=== PATIENT | male | born 1960 | race Caucasian/White ===

== ENCOUNTER → 2017-01-23 | Outpatient (CLI) | payer BC ==
[~2017-01-23] MED LIST: ALBUAER2 INH; ASCO250T5 PO; ATOR-22 PO; ATV/1 PO; BUPR100T8 PO; CHLO1TAB38 PO; CLON0.5T3 PO; CNT PO; CYCL10TA6 PO; DSY100 PO; IRON TAB PO; METH750T PO; PARO10TA3 PO; SULF500T36 PO; TRAM-10 PO
[2017-01-23 17:01] LABS: CHOLESTEROL/HDL RATIO 3.3
== END | disposition home or self-care (01) ==
LOC: C.LAB 13:48
PROVIDERS: ATTEND Neuromusculoskeletal Medicine & OMM
DX: Z00.00 Encounter for general adult medical examination without abnormal findings (principal); E66.9 Obesity, unspecified; E78.5 Hyperlipidemia, unspecified

== ENCOUNTER → 2017-08-10 | Outpatient (CLI) | payer OTHER | END | disposition home or self-care (01) | LOC: C.LAB 14:34 | PROVIDERS: ATTEND Neuromusculoskeletal Medicine & OMM | DX: Z11.59 Encounter for screening for other viral diseases (principal) ==

== ENCOUNTER 2024-06-21 08:53 | Inpatient (IN) ==
--- NOTE | 2024-06-03 14:16 | PAT Medication Instructions ---
Medication Instructions Date of Service June 03, 2024 Home Medications Medication Instructions Recorded atorvastatin 20 mg tablet 20 mg PO HS #90 tabs 02/21/24 sulfasalazine 500 mg tablet See Rx Instructions .Route 05/01/24 .COMPLEX #180 tabs naproxen 500 mg tablet 500 mg PO BID PRN pain #20 tabs 05/13/24 methylprednisolone 4 mg tablets in 4 mg PO DAILY #21 ea 05/24/24 a dose pack (Medrol (Leopoldo)) oxycodone 5 mg tablet 5 mg PO Q4H PRN pain #15 tabs 05/24/24 chlorpromazine 10 mg tablet 20 mg PO HS clonazepam 0.5 mg tablet 0.5 mg PO QPM trazodone 100 mg tablet 200 mg PO HS bupropion HCl 100 mg tablet,12 hr sustained-release 100 mg PO QAM bupropion HCl 150 mg tablet,12 hr sustained-release 150 mg PO QAM albuterol sulfate 90 mcg/actuation aerosol inhaler 1 - 2 inh inhalation QID PRN SOB sertraline 50 mg tablet 75 mg PO QAM atorvastatin 20 mg tablet 20 mg PO HS tadalafil 5 mg tablet 5 mg PO QAM sulfasalazine 500 mg tablet See Rx Instructions .Route .COMPLEX naproxen 500 mg tablet 500 mg PO BID PRN pain acetaminophen 500 mg tablet (Tylenol Extra Strength) 500 mg PO Q6H PRN Pain doxycycline hyclate 100 mg capsule 100 mg PO DAILY PRN Other emtricitabine 200 mg-tenofovir alafenamide fumarate 25 mg tablet (Descovy) 1 tab PO QAM [id number] 300 mcg-K 60 mcg-lycop 600 mcg-lutein 300 mcg tablet (Centrum Silver Men) 1 tab PO QAM phentermine 37.5 mg capsule 37.5 mg PO QAM psyllium husk 0.4 gram capsule (Metamucil) 1.2 g PO BID methylprednisolone 4 mg tablets in a dose pack (Medrol (Leopoldo)) 4 mg PO DAILY oxycodone 5 mg tablet 5 mg PO Q4H PRN pain gabapentin 300 mg capsule 300 mg PO TID prednisone 20 mg tablet 20 mg PO QAM ASK your surgeon for instructions naproxen 500 mg tablet 500 mg PO BID PRN pain ASK your prescriber and surgeon sulfasalazine 500 mg tablet See Rx Instructions .Route .COMPLEX emtricitabine 200 mg-tenofovir alafenamide fumarate 25 mg tablet (Descovy) 1 tab PO QAM STOP 5 days prior to surgery phentermine 37.5 mg capsule 37.5 mg PO QAM DO NOT take the morning of surgery [id number] 300 mcg-K 60 mcg-lycop 600 mcg-lutein 300 mcg tablet (Centrum Silver Men) 1 tab PO QAM psyllium husk 0.4 gram capsule (Metamucil) 1.2 g PO BID Take morning of surgery With a small sip of water, OTHERWISE NOTHING TO EAT OR DRINK AFTER MIDNIGHT: bupropion HCl 100 mg tablet,12 hr sustained-release 100 mg PO QAM bupropion HCl 150 mg tablet,12 hr sustained-release 150 mg PO QAM albuterol sulfate 90 mcg/actuation aerosol inhaler 1 - 2 inh inhalation QID PRN SOB (use if needed; please bring rescue inhaler with you to hospital day of surgery if possible) sertraline 50 mg tablet 75 mg PO QAM tadalafil 5 mg tablet 5 mg PO QAM acetaminophen 500 mg tablet (Tylenol Extra Strength) 500 mg PO Q6H PRN Pain (if needed) doxycycline hyclate 100 mg capsule 100 mg PO DAILY PRN Other (if needed) methylprednisolone 4 mg tablets in a dose pack (Medrol (Leopoldo)) 4 mg PO DAILY oxycodone 5 mg tablet 5 mg PO Q4H PRN pain (if needed) gabapentin 300 mg capsule 300 mg PO TID prednisone 20 mg tablet 20 mg PO QAM Take evening before surgery chlorpromazine 10 mg tablet 20 mg PO HS clonazepam 0.5 mg tablet 0.5 mg PO QPM trazodone 100 mg tablet 200 mg PO HS albuterol sulfate 90 mcg/actuation aerosol inhaler 1 - 2 inh inhalation QID PRN SOB (if needed) atorvastatin 20 mg tablet 20 mg PO HS acetaminophen 500 mg tablet (Tylenol Extra Strength) 500 mg PO Q6H PRN Pain (if needed) doxycycline hyclate 100 mg capsule 100 mg PO DAILY PRN Other (if needed) psyllium husk 0.4 gram capsule (Metamucil) 1.2 g PO BID oxycodone 5 mg tablet 5 mg PO Q4H PRN pain (if needed) gabapentin 300 mg capsule 300 mg PO TID Other Notes If you have any questions please call us at [phone] or [phone] or [phone] or [phone]
--- NOTE | 2024-06-05 14:41 | Anesthesiology Consultation ---
Date of Service June 05, 2024 Assessment & Plan (1) Encounter for pre-operative examination: Chart Review Chart Review: Acceptable Risk for Surgery (pending 06/11/24 PCP office visit ) and Patient seen in Pre Admission Testing - Discussed case with Dr. Valencia- due to limited functional status and type of surgical procedure- recommend PCP approval for upcoming surgery. Workload note sent to Dr. Roa - PCP would like preop appt set up - preop PCP appt 06/11/24 Per PAT appt on 06/05/24, no recent illness/disease exposures, illness related symptoms, or recent illness/disease positive tests. Will leave to surgeon's discretion if preop Covid testing needed Teaching & Discussion Pre-Anesthesia Teaching/Discussion Notes: Instructed NPO after midnight before surgery,except medications with 15 cc of water. Medication instructions provided according to the PAT guidelines. History Surgery Operation Date: 06/21/24 07:30 Proposed Procedures p Lateral Lumbar Interbody Fusion L2-L3, L3-L4, L2 Laminectomy for Facet Cyst, L2-L4 Posterior Instrumental Fusion, CT Navigation, with Spinal Cord Monitoring - Prasad Jordan MD Height/Weight Height: 5 ft 6 in Weight: 116 kg Allergies Allergy/AdvReac Type Severity Reaction Status Date / Time codeine AdvReac Unknown Constipatio Verified 06/03/24 11:47 n oxcarbazepine AdvReac Unknown VISION Verified 06/03/24 11:47 DISTURBANCES Medications Home Medications Medication Instructions Recorded Confirmed Last Taken chlorpromazine 10 mg tablet 20 mg PO HS 11/23/18 06/03/24 11/29/23 clonazepam 0.5 mg tablet 0.5 mg PO QPM 11/23/18 06/03/24 11/29/23 trazodone 100 mg tablet 200 mg PO HS 11/23/18 06/03/24 11/29/23 bupropion HCl 100 mg tablet,12 hr 100 mg PO QAM 10/07/20 06/03/24 11/29/23 sustained-release bupropion HCl 150 mg tablet,12 hr 150 mg PO QAM 10/07/20 06/03/24 11/29/23 sustained-release albuterol sulfate 90 mcg/actuation 1 - 2 inh inhalation QID PRN SOB 06/21/22 06/03/24 Unknown aerosol inhaler sertraline 50 mg tablet 75 mg PO QAM 07/14/22 06/03/24 11/29/23 atorvastatin 20 mg tablet 20 mg PO HS #90 tabs 02/21/24 06/03/24 Unknown tadalafil 5 mg tablet 5 mg PO QAM 02/21/24 06/03/24 Unknown sulfasalazine 500 mg tablet See Rx Instructions .Route 05/01/24 06/03/24 Unknown .COMPLEX #180 tabs naproxen 500 mg tablet 500 mg PO BID PRN pain #20 tabs 05/13/24 06/03/24 Unknown acetaminophen 500 mg tablet 500 mg PO Q6H PRN Pain 05/17/24 06/03/24 Unknown (Tylenol Extra Strength) doxycycline hyclate 100 mg capsule 100 mg PO DAILY PRN Other 05/17/24 06/03/24 Unknown emtricitabine 200 mg-tenofovir 1 tab PO QAM 05/17/24 06/03/24 Unknown alafenamide fumarate 25 mg tablet (Descovy) [id number] 300 mcg-K 60 1 tab PO QAM 05/17/24 06/03/24 Unknown mcg-lycop 600 mcg-lutein 300 mcg tablet (Centrum Silver Men) phentermine 37.5 mg capsule 37.5 mg PO QAM 05/17/24 06/03/24 Unknown psyllium husk 0.4 gram capsule 1.2 g PO BID 05/17/24 06/03/24 Unknown (Metamucil) methylprednisolone 4 mg tablets in 4 mg PO DAILY #21 ea 05/24/24 06/03/24 Unknown a dose pack (Medrol (Leopoldo)) oxycodone 5 mg tablet 5 mg PO Q4H PRN pain #15 tabs 05/24/24 06/03/24 Unknown gabapentin 300 mg capsule 300 mg PO TID 06/03/24 06/03/24 Unknown prednisone 20 mg tablet 20 mg PO QAM 06/03/24 06/03/24 Unknown Past Medical History Medical History Anxiety COPD (chronic obstructive pulmonary disease) mild, uses inhaler prn w/ exertion breathing stable Crohn disease Depression Fall in shower - 04/2024 > seen at [place] [facility] > Xrays foot/shoulder/ankle > given walking boot for ankle, no longer wearing - no fractures- ankle and foot pain improved, continues with right shoulder pain History of anemia History of COVID-19 (2019 > no hosp; resolved History of kidney stones passed on own Hx of gout No recent gout flares Hx of migraines Insomnia OCD (obsessive compulsive disorder) controlled, no longer on meds Scoliosis Seasonal allergies Exercise / Class Metabolic Activity III < 4 Walking/Shop/Light housework (no chest pain, mild SOB with flat surface ambulation (functional status poor due to increased back pain)- uses walker at home ) Past Family History Family History Mother Crohn's disease Chronic kidney disease Sister Asthma Father Hyperlipidemia Prostate cancer Denies family history of Colon cancer Ovarian cancer Myocardial infarction Breast cancer Past Surgical History Surgical History History of back surgery Lumbar Laminectomy History of colonoscopy History of tonsillectomy Hx of eye surgery right > tear duct sx Past Anesthesia History No Hx of Anesthesia Complications (with exception to "soreness" after tear duct surgery (had to keep getting medication per patient) ) and No Family Hx of Anesthesia Complications History of PONV No Hx of PONV and No Hx of Motion Sickness Social History Smoking Status: Former smoker Do You Dip or Chew Tobacco: No Smoking End Date: Quit around 2014 Hx Alcohol Use: No Hx Substance Use: No substance use type: does not use Review of Systems - Occ wheezing (chronic and intermittent due to COPD) - stable - Hx of snoring - no hx of sleep study - Ongoing right shoulder pain (surgeon aware per patient)- did encourage patient to follow up with surgeon to ensure shoulder pain will not affect rehab process for back surgery Patient denies chest pain, shortness of breath at rest, reflux, cough, palpitations. No hx of seizures, stroke, MT. No hx of blood clots or blood transfusions Physical Exam Vital Signs VITALS BP 133/77 P 96 TEMP 98.6 SP02 96% RESP 16 Constitutional no acute distress ENMT Mouth: no TMJ clicking Thyromental Distance: > or= 3.5 Finger Breadths (3.5) Mallampati Class: III Mouth / Teeth: 2 1. Broken capped tooth Missing molars and side teeth Neck + limited neck extension (minimal ) and + facial hair (advised to shave/trim ) Respiratory normal respiratory effort; no respiratory distress Auscultation: lungs clear to auscultation bilaterally; no wheezes Cardiovascular Rate/Rhythm: regular rate and regular rhythm Heart Sounds: no murmur Vessels: no carotid bruit Musculoskeletal Spine: no pain with cervical ROM Extremities: extremities normal to inspection Psychiatric Orientation: alert Lab Results Anesthesia Preop Results Results Anesthesia Widget: 2 WBC 10.39 K/ul (4.8-10.8) 06/05/24 Hgb 12.7 g/dl (14.0-18.0) L 06/05/24 Hct 39.4 % (42.0-52.0) L 06/05/24 Plt 231 K/uL (130-400) 06/05/24 Na 141 mmol/L (136-145) 06/05/24 K 4.2 mmol/L (3.5-5.1) 06/05/24 Cl 104 mmol/L (98-107) 06/05/24 CO2 34 mmol/L (21-32) H 06/05/24 BUN 15 mg/dl (6-23) 06/05/24 Creat 0.85 mg/dl (0.6-1.4) 06/05/24 Glucose Level 102 mg/dl (70-99(Fasting)) H 06/05/24 PT 10.3 Seconds (9.0-12.0) 06/05/24 PTT 26 Seconds (21-31) 06/05/24 INR 0.9 (0.9-1.1) 06/05/24 TSH 1.543 uIu/ml (0.300-4.500) 04/24/24 HA1c 4.8 % (4.5-5.6) 06/05/24 Blood Type A Positive 06/05/24 Antibody Screen NEGATIVE 06/05/24 Testing Electrocardiogram Date: 06/05/24 Findings: + NSR @ (86bpm) Left axis deviation Chest X-Ray Date: 06/05/24 Findings: + NAD
[~2024-06-21 08:53] MED LIST changes: -ALBUAER2 INH; -ASCO250T5 PO; -ATOR-22 PO; -ATV/1 PO; -BUPR100T8 PO; -CHLO1TAB38 PO; -CLON0.5T3 PO; -CNT PO; -CYCL10TA6 PO; +DEXAMETHASONE SOD INJ 4 MG/ML VIAL ONE; -DSY100 PO; -IRON TAB PO; +LIDOCAINE 2% 2 ML VIAL/AMP(20MG/ML) INFIL ONE; -METH750T PO; +ONDANSETRON INJ 2 MG/ML 2 ML VIAL ONE; -PARO10TA3 PO; +PHENYLEPHRINE HCL 10 MG/ML VIAL ONE; +PROPOFOL IV EMULSION 10 MG/ML 20 ML VIAL IV ONE; +ROCURONIUM BROMIDE 10 MG/ML 5 ML VIAL IV ONE; -SULF500T36 PO; -TRAM-10 PO
[2024-06-21] MEDS ORDERED: ATROPINE SULFATE 0.1 MG/ML 10ML SYR IV PRN (09:21)
[2024-06-21] MEDS ORDERED: PROMETHAZINE HCL 6.25 MG in SODIUM CHLORIDE 0.9% 50 ML IV PRN (09:21)
[2024-06-21] MEDS ORDERED: DROPERIDOL 5 MG/2 ML VIAL IV PRN (09:21)
[2024-06-21] MEDS ORDERED: ePHEDrine sulfate 50 MG/ML AMP IV PRN (09:21)
[2024-06-21] MEDS: ACETAMINOPHEN 500 MG TAB PO SCH (09:37)
[2024-06-21] MEDS: LR 60ML/HR IV SCH (09:37)
[2024-06-21] MEDS: ALBUT/IPRATROP 3MG/0.5MG NEB 3 ML VIAL INH STA (09:43)
[2024-06-21] MEDS: LR 15ML/HR IV SCH (10:00)
[2024-06-21] MEDS ORDERED: fentaNYL citrate PF 100 MCG/2 ML VIAL ONE ×2 (10:10→15:56)
[2024-06-21] MEDS ORDERED: MIDAZOLAM HCL 1 MG/ML 2ML VIAL ONE (10:10)
--- NOTE | 2024-06-21 10:36 | History & Physical Bridge Note ---
Date of Service June 21, 2024 History & Physical Bridge Note I have examined the patient, reviewed the History & Physical and in the interval since the performance of the History & Physical I have noted the following changes of clinical significance: no changes noted Plan for L2-3, L3-4 lateral fusion, posterior instrumented fusion L2-4, L2 laminectomy
[2024-06-21] MEDS ORDERED: PROPOFOL IV EMULSION 10 MG/ML 100 ML VIAL IV ONE ×3 (11:08→16:19)
[2024-06-21] MEDS ORDERED: REMIFENTANIL HCL 1 MG VIAL IV ONE ×3 (11:08→14:09)
[2024-06-21] MEDS: ceFAZolin 3000MG 3,000 MG/72.5 ML BAG IV SCH ×2 (11:44→23:32)
[2024-06-21] MEDS ORDERED: ROCURONIUM BROMIDE 10 MG/ML 5 ML VIAL IV ONE (14:04)
--- NOTE | 2024-06-21 14:22 | Fluoroscopy Report ---
FL lumbar spine 2-3V CLINICAL HISTORY: L2-L4 LATERAL INTERBODY L2 LAMI L2-L4 FUSION COMPARISON STUDY: None FLUOROSCOPY TIME: 260 seconds FLUOROSCOPY IMAGES: 3 EXPOSURE DOSE: 238 mGy FINDINGS: Fluoroscopy was provided for lumbar surgery. IMPRESSION: Intraoperative fluoroscopy. ACT 112: Negative or not required by law. Electronically signed by: Bernardo Azar M.D. 06/21/2024 2:21 PM
[2024-06-21] MEDS ORDERED: ceFAZolin 330 MG/ML 1 GM VIAL ONE (15:02)
[2024-06-21] MEDS: ceFAZolin 3000MG 3,000 MG/72.5 ML BAG IV ONE (15:15)
[2024-06-21] MEDS ORDERED: HYDROmorphone INJ 2 MG/ML SYR/VIAL ONE (15:28)
[2024-06-21] MEDS ORDERED: DexMEDEtomidine HCL IV 100 MCG/ML VIAL IV ONE (16:35)
[2024-06-21] MEDS ORDERED: SUGAMMADEX SODIUM 200 MG/2 ML VIAL IV ONE (16:45)
[2024-06-21] MEDS ORDERED: hydrALAZINE HCL 20 MG/ML VIAL ONE (16:51)
[2024-06-21] MEDS: FLOSEAL HEMOSTATIC MATRIX 10ML TOP ONE (17:00)
[2024-06-21] MEDS: VANCOMYCIN HCL 1000MG/20ML VIAL ONE ×2 (17:00)
[2024-06-21] MEDS: BUPIVACAINE 0.5 % 5 MG/1 ML MPF 30ML VIAL ONE (17:00)
[2024-06-21] MEDS ORDERED: DO NOT ADMINISTER PNEUMOCOCCAL VACCINE PRN (17:18)
[2024-06-21] MEDS ORDERED: METOCLOPRAMIDE HCL INJ 5 MG/ML 2 ML VIAL IV PRN (17:18)
[2024-06-21] MEDS ORDERED: PROMETHAZINE 12.5 MG/50.5 ML BAG IV PRN (17:18)
[2024-06-21] MEDS ORDERED: ONDANSETRON INJ 2 MG/ML 2 ML VIAL IV PRN (17:18)
[2024-06-21] MEDS ORDERED: NALOXONE HCL 0.4 MG/1 ML VIAL/CARP IV PRN (17:18)
[2024-06-21] MEDS ORDERED: bisacodyL 10 MG SUPP PR PRN (17:18)
[2024-06-21] MEDS ORDERED: ACETAMINOPHEN 1,000 MG/100 ML VIAL IV PRN (17:18)
[2024-06-21] MEDS ORDERED: DO NOT ADMINISTER FLU VACCINE PRN (17:18)
[2024-06-21] MEDS ORDERED: FAMOTIDINE 20 MG TAB PO PRN (17:18)
[2024-06-21] MEDS ORDERED: diphenhydrAMINE Capsule 25 MG CAP PO PRN (17:18)
[2024-06-21] MEDS ORDERED: ALUMINUM/MAGNESIUM SUSP 30 ML UDC PO PRN (17:18)
[2024-06-21] MEDS ORDERED: SOD PHOSPHATE/SOD BIPHOSPHATE ENEMA 132 ML BTL PR PRN (17:18)
[2024-06-21] MEDS ORDERED: ALBUTEROL HFA 8 GM INHALER INH PRN (17:33)
--- NOTE | 2024-06-21 18:04 | Operative Report ---
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 L3-4 anterior lumbar interbody fusion via lateral approach (59300). 2. L2-3 anterior lumbar interbody fusion via lateral approach (84798). 3. L3-4 interbody spacer placement with arthrodesis (13759). 4. L2-3 interbody spacer placement with arthrodesis (75524). 5. L2-3 posterolateral fusion (68699). 6. L3-4 posterolateral fusion (23328). 7. L2, L3, L4 posterior instrumentation (74306). 8. L2-3 laminectomy with removal of facet cyst (34015). 9. Stereotactic computer-assisted (navigational) procedure; spinal (78913). 10. Autograft and allograft for spine surgery (16319) Instrumentation: Medtronic Anteralign, Perc Screws Surgeon Prasad Jordan MD Outbound [employer] Executive Jorge WHITAKER_Heriberto Estimated Blood Loss 200 Findings Consistent with Post-Op Diagnosis Specimens None Drains MATHEW Drain Anesthesia Type General Complications none Disposition Disposition: Recovery Room Description of Procedure Informed consent was obtained. In the preoperative holding area, the patient was marked with a marking pen. They were taken to the operating room and anesthesia was initiated. Neuromonitoring was utilized, including running electromyography and triggered electromyography. They patient was placed in a lateral position. All bony prominences were carefully padded. Antibiotics were administered. A timeout was performed. Under the guidance of fluoroscopy, a lateral approach was utilized. An incision was made directly lateral over the L2-3 disk space. Blunt dissection was completed into the retroperitoneal space. The psoas was bluntly cleared off. A dilator was placed under fluoroscopy at the junction of the posterior and middle third of the disk space. The dilator was carefully dissected through the psoas to dock on the disc space. Neuromonitoring revealed that there were no nerves adjacent to the dilator. A guidewire was placed into the disk space. Progressively larger dilators were inserted. Neuromonitoring was utilized with each dilator to ensure that no nerves were adjacent to the approach. An appropriately sized retractor was placed over the dilators. It was secured to the bed using a clamp. Neuromonitoring revealed no nerves adjacent to the retractor. It was gently opened a small amount. A ball tip probe attached to neuromonitoring was used to further confirm that there were no nerves in the visualized field or directly behind the retractor. Having cleared the field of nerves, an annulotomy was completed using a knife. A diskectomy was completed using curettes, rongeurs and pituitaries. The endplates were prepared. An appropriately sized interbody spacer was selected and implanted after being pack ed with allograft material. The retractor was carefully removed and meticulous hemostasis was achieved. Attention was then turned to the L3-4 disk space. The psoas was bluntly cleared off. A dilator was placed under fluoroscopy at the junction of the posterior and middle third of the disk space. The dilator was carefully dissected through the psoas to dock on the disc space. Neuromonitoring revealed that there were no nerves adjacent to the dilator. A guidewire was placed into the disk space. Progressively larger dilators were inserted. Neuromonitoring was utilized with each dilator to ensure that no nerves were adjacent to the approach. An appropriately sized retractor was placed over the dilators. It was secured to the bed using a clamp. Neuromonitoring revealed no nerves adjacent to the retractor. It was gently opened a small amount. A ball tip probe attached to neuromonitoring was used to further confirm that there were no nerves in the visualized field. Having cleared the field of nerves, an annulotomy was completed using a knife. A diskectomy was completed using curettes, rongeurs and pituitaries. The endplates were prepared. An appropriately sized interbody spacer was selected and implanted after being packed with allograft material. The retractor was carefully removed and meticulous hemostasis was achieved. The fascia was closed using absorbable suture. The subcutaneous was closed using absorbable suture. Tissue sealant was used to close the skin. A sterile dressing was placed. The patient was then placed prone on a Vin table for the posterior procedure. Their back was prepped and draped in typical sterile fashion. A timeout was performed again. A stereotactic frame was attached to the patient. Intraoperative O-arm CT (computed tomography) images were obtained for stereotactic navigation. A #10 blade was used to incise the skin. Bovie electrocautery was used to elevate the paraspinal musculature off the laminae. Using a Kerrison rongeur, laminectomy of L2 was completed. Ligamentum flavum between L4-5 was removed. There was noted to be facet hypertrophy and a cyst arrising from the right L2-3 Facet joint tightly adherent to the dura. This was causing significant lateral recess stenosis. Therefore, a medial facetectomy was completed. The cyst was elevated off the dura with a nerve hook and Roberto elevator and transected at the facet joint origin. A partial superior laminectomy of L3 was performed. The L3 traversing nerve roots were confirmed to be completely decompressed. Using stereotactic assistance, pedicle screw tracts were created using an awl. The L2-3 and L3-4 facet joints were decorticated. Local autograft was packed posterolaterally to induce fusion. Next, utilizing stereotactic assistance, screws of appropriate length were placed into the pedicles of L2, L3, L4. Electromyography confirmed appropriate position. Rods were placed bilaterally. Set screws were placed and final tightened. A second intraoperative CT scan was then obtained to verify appropriate position of the hardware. Drain placed over the laminectomy exiting through the skin. The fascia, subcutaneous and cutaneous were closed in layers using suture. A sterile dressings was placed. At the end of case, all instrument and sponge counts were correct. The patient was taken to the PACU in stable condition intubated. I attest to the content of the Intraoperative Record and any orders documented therein. Any exceptions are noted below.
[2024-06-21] MEDS: HYDROmorphone INJ 2 MG/ML SYR/VIAL IV PRN (19:23)
--- NOTE | 2024-06-21 19:27 | Anesthesiology Progress Note ---
Date of Service June 21, 2024 Anesthesia Post Procedure Vital Signs Vital Signs: Temp Pulse Pulse Resp BP BP Pulse Ox 06/21/24 19:20 79 19 151/98 H 98 06/21/24 19:10 81 12 145/90 H 97 06/21/24 19:00 77 14 165/79 H 96 06/21/24 18:50 78 12 185/91 H 96 06/21/24 18:40 77 15 159/71 H 95 06/21/24 18:30 36.4 C L 77 13 172/86 H 99 06/21/24 18:20 78 14 176/90 H 98 06/21/24 18:10 82 12 168/97 H 98 06/21/24 18:00 78 10 L 171/84 H 100 06/21/24 17:50 77 8 L 174/85 H 100 06/21/24 17:42 36.2 C L 75 9 L 161/92 H 100 06/21/24 09:43 77 20 96 06/21/24 09:19 36.7 C 74 20 147/85 H 96 O2 Del Method O2 Flow Rate 06/21/24 19:20 Room Air 06/21/24 19:10 Room Air 06/21/24 19:00 Room Air 06/21/24 18:50 Room Air 06/21/24 18:40 Room Air 06/21/24 18:30 Oxymask 5 06/21/24 18:20 Oxymask 5 06/21/24 18:10 Oxymask 5 06/21/24 18:00 T-Piece 12 06/21/24 17:50 T-Piece 12 06/21/24 17:42 T-Piece 12 06/21/24 09:43 Room Air 06/21/24 09:19 Room Air Pain Intensity Bilateral Back: Pain Intensity: 6 Transfer of Care Handoff Completed per policy Notes Mental Status: alert / awake / arousable Patient Amnestic to Procedure: Yes Nausea / Vomiting: adequately controlled Pain: adequately controlled Airway Patency, RR, SpO2: stable & adequate BP & HR: stable & adequate Hydration State: stable & adequate Anesthetic Complications: no major complications apparent
[2024-06-21] MEDS: HYDROmorphone INJ 2 MG/ML SYR/VIAL ONE (20:16)
[2024-06-21] MEDS: LORazepam 2 MG/1 ML VIAL IV PRN (20:25)
[2024-06-21] MEDS: LACTATED RINGER'S 1,000 ML IV SCH (20:25)
[2024-06-21] MEDS: oxyCODONE HCL IR 5 MG TAB (IMMEDIATE RELEASE) PO PRN (20:25)
[2024-06-21] MEDS: DOCUSATE SODIUM/SENNA 50/8.6MG TAB PO SCH (21:08)
[2024-06-21] MEDS: traZODone HCL 100 MG TAB PO SCH (21:08)
[2024-06-21] MEDS: clonazePAM 0.5 MG TAB PO SCH (21:08)
[2024-06-21] MEDS: ATORVASTATIN 20 MG TAB PO SCH (21:08)
[2024-06-21] MEDS: chlorproMAZINE HCL 10 MG TAB PO SCH (21:08)
[2024-06-21] MEDS: GABAPENTIN 300 MG CAP PO SCH (21:08)
[2024-06-22] MEDS: hydrOXYzine HCl 25 MG TAB PO PRN (00:32)
[2024-06-22] MEDS: HYDROmorphone INJ 0.5 MG/0.5 ML SYR IV PRN (01:38)
[2024-06-22] MEDS: tiZANidine HCL 4 MG TABLET PO PRN (01:52)
[2024-06-22] MEDS: LORazepam 0.5 MG TAB PO PRN (05:27)
[2024-06-22] MEDS: POLYETHYLENE (MIRALAX) 17 GM PACK PO SCH (05:27)
[2024-06-22 07:33] LABS: Basophils # (auto) 0.03 K/uL (0.00-0.20); Basophils % (auto) 0.2 %; Eosinophils # (auto) 0.01 K/uL (0.00-0.50); Eosinophils % (auto) 0.1 %; Hematocrit (blood only) 35.5 % (42.0-52.0); Hemoglobin 11.8 g/dl (14.0-18.0); Immature Granulocytes % (auto) 0.5 %; Lymphocytes # (auto) 1.76 K/uL (1.20-3.40); Lymphocytes % (auto) 9.6 %; Mean Corpuscular Hemoglobin 30.4 pg (25.0-34.0); Mean Corpuscular Hgb Conc 33.2 g/dL (32.0-36.0); Mean Corpuscular Volume 91.5 fL (80.0-100.0); Mean Platelet Volume 10.8 fL (9.4-12.4); Monocytes # (auto) 1.55 K/uL (0.11-0.59); Monocytes % (auto) 8.5 %; Neutrophils # (auto) 14.87 K/uL (1.40-6.50); Neutrophils % (auto) 81.1 %; Platelet Count 296 K/uL (130-400); RDW Coefficient of Variation 15.9 % (11.5-14.5); RDW Standard Deviation 53.1 fL (36.4-46.3); Red Blood Count 3.88 M/uL (4.70-6.10); White Blood Count 18.32 K/ul (4.8-10.8)
[2024-06-22 07:43] LABS: BUN Creatinine Ratio 17.9 (10-20); Calcium 8.2 mg/dl (8.6-10.3); Creatinine Clr Calc Pharmacy 111.2 ml/min; Potassium 4.2 mmol/L (3.5-5.1)
[2024-06-22] MEDS: buPROPion SR 150 MG TABCR PO SCH (08:00)
[2024-06-22] MEDS: SERTRALINE HCL 50 MG TABLET PO SCH (08:00)
[2024-06-22] MEDS: buPROPion SR 100 MG TABCR PO SCH (08:01)
[2024-06-22] MEDS: ACETAMINOPHEN 500 MG TAB PO PRN (08:06)
--- NOTE | 2024-06-22 08:45 | Orthopedic Progress Note ---
Date of Service June 22, 2024 Assessment & Plan (1) S/P lumbar fusion: mobilize with PT diet as tolerated PAin control oxy, tylenol, tizanidine prn. Add toradol 3 doses SCDs and ambulate for DVT prophylaxis cruz out when mobilizing labs reviewed Subjective s/p xlif, neuro intact, reports pain at incision sites as expected, awake and eating breakfast this AM. Difficult pain control overnight Review of Systems All systems reviewed & are unremarkable except as noted in HPI & below. Physical Exam no neuro deficits L2-S1 myotomes, dermatomes drain functioning SCDs in place Results & Data Results & Data Laboratory Results . Diagnostic Findings . PG Care Time/CCT Total # of Minutes Spent Total Time Spent with Patient: Total time spent is greater than 50% in coordination of care (as documented) at patient's floor/unit and/or counseling patient: Coding Level of Care Code 23195 Post Operative Follow-Up Diagnoses S/P lumbar fusion Z98.1
[2024-06-22] MEDS: KETOROLAC 30 MG/ML VIAL IV SCH (09:02)
--- NOTE | 2024-06-22 10:28 | Hospitalist Consultation ---
Date of Consultation June 22, 2024 Assessment & Plan (1) Crohns disease: (2) Chronic obstructive pulmonary disease: (3) Hyperlipidemia: Plan 64 y/o M w/ PMHx of MDD, obesity, LBP 2o L spine DDD and stenosis s/p lumbar laminectomy, COPD, Crohn's dz, and HLD who presents to the hospital for elective back surgery with Dr. Jordan. Hospitalist were consulted for medical management. #COPD Not on daily maintenance inhalers, continue prn albuterol Does not use CPAP or supplemental oxygen. Wean oxygen as able, goal O2 greater than 90% #Crohn dz - sulfasalazine resumed #Sexual exposure risk - has not been receiving his Descovy here (due to non formulary), should take for 7 days before protected against HIV #HLD - continue statin #Mental health - continue Wellbutrin, chlorpromazine, clonazepam, zoloft Caution for oversedation with concomitant pain medications #S/p Back surgery discharge dispo / pain control / dvt proh per primary EBL 200, post op Hgb 11.8 (prior 12.7). Elevated WBC - likely reactive to surgery and result of steroid use. No signs of acute infection Thank you for allowing us to participate in the care of this patient, hospital medicine will sign off. Please reach out with any new questions or concerns. Supervising Physician Co-Signing Physician Notes Attending Attestation: Chart reviewed in detail, consult care plan d/w JULIANNE Lange. I agree w/ the owen components of her consult documentation. 64yo male with history of MDD, OCD, COPD, obesity, previous back surgery, Crohn's disease on sulfasalazine - follows with [facility]. Presented 06/21/24 for elective spine surgery with Dr Jordan. During surgery the following were completed per the op note -- 1. L3-4 anterior lumbar interbody fusion via lateral approach (02417). 2. L2-3 anterior lumbar interbody fusion via lateral approach (68107). 3. L3-4 interbody spacer placement with arthrodesis (58350). 4. L2-3 interbody spacer placement with arthrodesis (63125). 5. L2-3 posterolateral fusion (). 6. L3-4 posterolateral fusion (). 7. L2, L3, L4 posterior instrumentation (52477). 8. L2-3 laminectomy with removal of facet cyst (16579). 9. Stereotactic computer-assisted (navigational) procedure; spinal (01015). 10. Autograft and allograft for spine surgery (58501) Post-op H/H show minimal-mild decrease only. Post-op Creatinine 0.8. Vitals are stable. Defer pain management, discharge disposition, etc. to primary ortho team. Chronic medical problems are stable at this time. Darwin Allred MD History of Present Illness Reason for Consultation: medical management Requesting Physician: Jorge Mercer PA-C Attending Physician: Prasad Jordan MD History of Present Illness 64 y/o M w/ PMHx of MDD, obesity, LBP 2o L spine DDD and stenosis s/p lumbar laminectomy, COPD, Crohn's dz, and HLD who presents to the hospital for elective back surgery with Dr. Jordan. Hospitalist were consulted for medical management. Seen on postop day 1, visitors present at bedside. Reports feeling tired the pain control is better than last night. Was able to walk however in the hallway with therapy. Has been passing gas since surgery. Does feel like his medications that he is receiving here is reflective of this her medications Allergies Allergy/AdvReac Type Severity Reaction Status Date / Time codeine AdvReac Unknown Constipatio Verified 06/21/24 09:27 n oxcarbazepine AdvReac Unknown VISION Verified 06/21/24 09:27 DISTURBANCES Home Medications Medication Instructions Recorded Confirmed Type chlorpromazine 10 mg tablet 20 mg PO HS 11/23/18 06/21/24 History clonazepam 0.5 mg tablet 0.5 mg PO QPM 11/23/18 06/21/24 History trazodone 100 mg tablet 200 mg PO HS 11/23/18 06/21/24 History bupropion HCl 100 mg tablet,12 hr 100 mg PO QAM 10/07/20 06/21/24 History sustained-release bupropion HCl 150 mg tablet,12 hr 150 mg PO QAM 10/07/20 06/21/24 History sustained-release albuterol sulfate 90 mcg/actuation 1 - 2 inh inhalation QID PRN SOB 06/21/22 06/21/24 History aerosol inhaler sertraline 50 mg tablet 75 mg PO QAM 07/14/22 06/21/24 History atorvastatin 20 mg tablet 20 mg PO HS #90 tabs 02/21/24 06/21/24 Rx tadalafil 5 mg tablet 5 mg PO QAM 02/21/24 06/21/24 History sulfasalazine 500 mg tablet See Rx Instructions .Route 05/01/24 06/21/24 Rx .COMPLEX #180 tabs acetaminophen 500 mg tablet 500 mg PO Q6H PRN Pain 05/17/24 06/21/24 History (Tylenol Extra Strength) doxycycline hyclate 100 mg capsule 100 mg PO DAILY PRN Other 05/17/24 06/21/24 History emtricitabine 200 mg-tenofovir 1 tab PO QAM 05/17/24 06/21/24 History alafenamide fumarate 25 mg tablet (Descovy) fdpelrnv-ep-chkoy 300 mcg-K 60 1 tab PO QAM 05/17/24 06/21/24 History mcg-lycop 600 mcg-lutein 300 mcg tablet (Centrum Silver Men) phentermine 37.5 mg capsule 37.5 mg PO QAM 05/17/24 06/21/24 History psyllium husk 0.4 gram capsule 1.2 g PO BID 05/17/24 06/21/24 History (Metamucil) oxycodone 5 mg tablet 5 mg PO Q4H PRN pain #15 tabs 05/24/24 06/21/24 Rx gabapentin 300 mg capsule 300 mg PO TID 06/03/24 06/21/24 History prednisone 20 mg tablet 20 mg PO QAM 06/03/24 06/21/24 History Patient History Medical History Anxiety COPD (chronic obstructive pulmonary disease) mild, uses inhaler prn w/ exertion breathing stable Crohn disease Depression Fall in shower - 04/2024 > seen at [place] [facility] > Xrays foot/shoulder/ankle > given walking boot for ankle, no longer wearing - no fractures- ankle and foot pain improved, continues with right shoulder pain History of anemia History of COVID-19 (2019 > no hosp; resolved History of kidney stones passed on own Hx of gout No recent gout flares Hx of migraines Insomnia OCD (obsessive compulsive disorder) controlled, no longer on meds Scoliosis Seasonal allergies Surgical History History of back surgery Lumbar Laminectomy History of colonoscopy History of tonsillectomy Hx of eye surgery right > tear duct sx Family History Mother Crohn's disease Chronic kidney disease Sister Asthma Father Hyperlipidemia Prostate cancer Denies family history of Colon cancer Ovarian cancer Myocardial infarction Breast cancer Social History Smoking Status: Former smoker Tobacco Type: Cigarettes Age Started Using Tobacco: 20; Age Quit Using Tobacco: 50; packs per day: 1; Smoking End Date: Quit around 2014; Second Hand Exposure: No; Do You Dip or Chew Tobacco: No; Tobacco Cessation Education Requested by Patient: No Hx Alcohol Use: No Hx Substance Use: No Preferred Language: Lithuanian Communication Ability: Effective Visual Impairment: No Limitations Hearing Ability: Normal Microbiology Analyst Required: No Beliefs That Will Affect Care: None marital status: Single Current Living Situation: Alone Current Living Situation Comment: sister current occupational status: employed current occupation: [employer] Sub[employer]er How many Children do You have: 0 Other Information That Helps Us Care for You: No Feels Safe at Home: Yes Safety Concerns: Feels Safe At This Time Childhood Exposure to Second-Hand Smoke: No Diet: regular caffeine: Yes during the past year weight has: increased > 10 lbs Dental Care, Regularly: Yes Physical Activity Frequency: Does not Exercise Seatbelt Use: always Sunscreen Use: No Assistive Devices: Glasses and Walker Review of Systems Review of Systems: All systems reviewed & are unremarkable except as noted in Subjective Results & Data Results & Data Vital Signs (Past 12 Hours) Vital Signs Temp Pulse Resp BP BP Pulse Ox O2 Del Method 06/22/24 08:12 99.0 F 89 18 124/71 96 Nasal Cannula 06/22/24 04:06 98.1 F 85 18 133/73 96 Nasal Cannula 06/21/24 23:22 98.1 F 94 H 18 147/75 H 93 Nasal Cannula O2 Flow Rate 06/22/24 08:12 06/22/24 04:06 2 06/21/24 23:22 2 Laboratory Results cbc and chemistry reviewed PG Care Time/CCT Total # of Minutes Spent Total Time Spent with Patient: Total time spent is greater than 50% in coordination of care (as documented) at patient's floor/unit and/or counseling patient: Coding Level of Care Code 76645 IN/OBS CONSULT LVL 4,60M Diagnoses Crohns disease K50.90 Chronic obstructive pulmonary disease J44.9 Hyperlipidemia E78.5
--- NOTE | 2024-06-22 16:49 | XRay Report ---
EXAM: XR lumbar spine 2-3V CLINICAL HISTORY: S/p lumbar fusion, weight bearing. TECHNIQUE: X-ray images of the lumbar spine were obtained in anteroposterior (AP) and lateral projections (weight-bearing). COMPARISON: CR 05/13/2024 and MR 05/24/2024. FINDINGS: Alignment: Evidence of L2 till L4 internal fixation hardware. Intact hardware and no malalignment. L2-3 and L3-4 disc spacers. Postoperative changes within the lower lumbar spine. Lumbar spine alignment is normal. Sacroiliac joints appear normal. Vertebral Bodies: Lumbar spine spondylo-degenerative changes with osteophytosis and facet joint arthropathy. Decreased heights of L1 and T12 vertebrae noted, presenting anterior wedging deformity Intervertebral Disc Spaces: Mildly narrowed L4-5 and L5-S1 intervertebral disc spaces. Soft Tissues: Paraspinal soft tissues are of normal thickness. No evidence of paraspinal soft tissue swelling or mass effect. Additional Findings: No other significant abnormalities noted. IMPRESSION: 1. Evidence of L2 till L4 internal fixation hardware. Intact hardware and no malalignment. 2. L2-3 and L3-4 disc spacers. 3. Postoperative changes within the lower lumbar spine. 4. Lumbar spine spondylo-degenerative changes with osteophytosis and facet joint arthropathy. 5. Decreased heights of L1 and T12 vertebrae were noted, presenting anterior wedging deformity. 6. Mildly narrowed L4-5 and L5-S1 intervertebral disc spaces. 7. Compared to prior studies. Internal fixation hardware added. Now no malalignment. No other changes. Disclaimer: A subtle bone abnormality or fracture may not be readily apparent on X-rays, thus clinical correlation and further imaging including follow-up CT, MRI, or follow-up X-rays are advised as needed. Electronically signed by Arnol Hernandez 06-22-2024 4:48 PM
[2024-06-22] MEDS: sulfaSALAzine 500 MG TABLET PO SCH (21:23)
[2024-06-23] MEDS: ONDANSETRON 4 MG OD TAB PO PRN (08:57)
--- NOTE | 2024-06-23 10:16 | Orthopedic Progress Note ---
Date of Service June 23, 2024 Assessment & Plan (1) S/P lumbar fusion: s/p XLIF, radicular pain resolved dc drain dressing changes daily pain control - oxy, tylenol prn tizanidine SCDs and ambulation for dvt work on placement, likely rehab given slow progress mobilizing Subjective Reports some right psoas pain, mobilizing with PT but slow progress. Voiding, tolerating PO diet. Review of Systems All systems reviewed & are unremarkable except as noted in HPI & below. Physical Exam neuro intact L2-S1 myotomes and dermatomes Voiding Drain minimal output Results & Data Results & Data Laboratory Results . Diagnostic Findings . PG Care Time/CCT Total # of Minutes Spent Total Time Spent with Patient: Total time spent is greater than 50% in coordination of care (as documented) at patient's floor/unit and/or counseling patient: Coding Level of Care Code 11997 Post Operative Follow-Up Diagnoses S/P lumbar fusion Z98.1
[2024-06-23] MEDS: MAGNESIUM HYDROXIDE SUSP 30 ML UDC PO PRN (17:08)
--- NOTE | 2024-06-24 08:12 | Orthopedic Progress Note ---
Date of Service June 24, 2024 Assessment & Plan (1) S/P lumbar fusion: POD 3 from XLIF, by Dr. Jordan -dressing changes daily -pain control - oxy, tylenol prn tizanidine -SCDs and ambulation for dvt -work on placement, likely rehab given slow progress mobilizing: case management to likely see him today. Subjective POD [address] Jordan on 06/21/24. He states he is doing okay. He has had some slow mobilization and is trying to get into rehab for therapy. He states he does have back pain but no issues with his bilateral lower extremities. Review of Systems All systems reviewed & are unremarkable except as noted in HPI & below. Physical Exam General: Alert and oriented. No acute distress. NV intact BL lower extremities. Results & Data Results & Data Laboratory Results . Diagnostic Findings . PG Care Time/CCT Total # of Minutes Spent Total Time Spent with Patient: Total time spent is greater than 50% in coordination of care (as documented) at patient's floor/unit and/or counseling patient: Coding Level of Care Code 86889 Post Operative Follow-Up Diagnoses S/P lumbar fusion Z98.1
[2024-06-24 20:26] VITALS: O2SAT 95
[2024-06-25 07:42] VITALS: RESP 18; TEMP 98.4
[2024-06-25 07:45] VITALS: BP 113/65
--- NOTE | 2024-06-25 09:43 | Orthopedic Progress Note ---
Date of Service June 25, 2024 Assessment & Plan (1) S/P lumbar fusion: Plan WBAT, AAT pain control prn SCDs and ambulate discharge to rehab today Subjective S/P XLIF, occasion LLE pain controlled with meds, no strength deficits, voiding heading to rehab today . Review of Systems All systems reviewed & are unremarkable except as noted in HPI & below. Physical Exam SILT l2-S1 L2-S1 myotomes intact Results & Data Results & Data Laboratory Results . Diagnostic Findings . PG Care Time/CCT Total # of Minutes Spent Total Time Spent with Patient: Total time spent is greater than 50% in coordination of care (as documented) at patient's floor/unit and/or counseling patient: Coding Level of Care Code 10839 Post Operative Follow-Up Diagnoses S/P lumbar fusion Z98.1
--- NOTE | 2024-06-25 09:53 | Discharge Summary ---
Date of Service June 25, 2024 Principal Diagnosis Same as "Discharge Diagnosis" noted below under Discharge Instructions. Discharge Exam SILT l2-S1 L2-S1 myotomes intact Discharge Data Consultations 06/21/24 17:29 Consult Hospitalist Routine Procedures Performed Operation Date: 06/21/24 10:20 Actual Procedures p L2-L3, L3-L4 Lateral Lumbar Interbody Fusion, L2 Laminectomy for Facet Cyst, L2-L4 Posterior Instrumental Fusion, CT Navigation, Spinal Cord Monitoring(Not Applicable) - Prasad Jordan MD Ordered Studies 06/21/24 10:20 CT lumbar spine wo con Routine [place] lumbar spine 2-3V Routine Hospital Course (1) S/P lumbar fusion: (2) Scoliosis of lumbar region due to degenerative disease of spine in adult: (3) Adjacent segment disease of lumbar spine with history of fusion procedure: (4) Lumbar spondylosis: (5) Lumbar stenosis without neurogenic claudication: (6) Lumbar radiculopathy: Plan Patient was admitted postoperatively for pain control and mobilization with physical therapy. They worked with physical therapy and met all goals. Pain was controlled with IV pain medication and transitioned to oral medications. Normal return of bowel and bladder function. They worked with physical therapy, vital signs were acceptable, no need for transfusion, deemed safe for discharge to rehab. PG Care Time/CCT Total # of Minutes Spent Total Time Spent with Patient: Total time spent is greater than 50% in coordination of care (as documented) at patient's floor/unit and/or counseling patient: Discharge Plan Discharge Items Patient Disposition: Transfer Inpatient Rehab Fac Reason For Visit: Cyst of Lumbar Facet Joint, Lumbar Radiculopathy, Discharge Diagnosis: Lumbar Radiculopathy Lumbar Stenosis Condition on Discharge: Good Activity: As commented below Activity Comment: follow post op instructions Lifting: No more than 10 pounds Bathing Comment: Ok to shower normally when incision dry, cover until then, no baths Weightbearing: Full weightbearing Non-emergency contact: Surgeon Call non-emergency contact if: your pain is worsening, your temperature is above 101, your wound has increased redness and your wound has increased drainage Follow-up/Referrals: Yamil Roa, [Primary Care Provider] - Diet: Regular Addtl Attending Provider Instructions: Dry dressing change until no drainage on dressing for 24 hrs, then open to air Addtl Stone Sawyer Provider Instructions: Hospital Medicine: Because you have missed more than 2 doses of your Descovy, you are not presently covered for HIV prevention. After resuming this, please wait 7 days before having intercourse to ensure HIV prevention. Pending Studies at Discharge: No Stand-Alone Forms: My [facility] Skilled Items Patient informed of condition?: Yes DNR: No Discharge Level of Care: Acute rehab Communicable Disease: No Discharge Prognosis: Improving Lines: None Urinary Catheter: No Medications and DC Order Prescriptions: New oxycodone 5 mg Tablet 5 - 10 mg PO Q4H PRN (Reason: pain) Qty: 60 0RF sennosides-docusate sodium [Senokot-S] 8.6-50 mg Tablet 2 tab PO HS Qty: 30 0RF acetaminophen [Tylenol Extra Strength] 500 mg Tablet 1,000 mg PO Q8H Qty: 30 0RF Continued albuterol sulfate 90 mcg/actuation HFA aerosol inhaler 1 - 2 inh inhalation QID PRN (Reason: SOB) bupropion HCl 100 mg tablet sustained-release 12 hr 100 mg PO QAM sertraline 50 mg tablet 75 mg PO QAM sulfasalazine 500 mg tablet See Rx Instructions .ROUTE .COMPLEX Qty: 180 3RF Dose Instruction: TAKE 3 TABLETS BY MOUTH TWICE DAILY Rx Instructions: TAKE 3 TABLETS BY MOUTH TWICE DAILY Centrum Silver Men [phone] mcg tablet 1 tab PO QAM psyllium husk [Metamucil] 0.4 gram capsule 1.2 g PO BID Descovy 200-25 mg tablet 1 tab PO QAM phentermine 37.5 mg capsule 37.5 mg PO QAM Rx Instructions: must administer 30 minutes before or 1-2 hours after breakfast doxycycline hyclate 100 mg capsule 100 mg PO DAILY PRN (Reason: Other) acetaminophen [Tylenol Extra Strength] 500 mg tablet 500 mg PO Q6H PRN (Reason: Pain) tadalafil 5 mg tablet 5 mg PO QAM atorvastatin 20 mg tablet 20 mg PO HS Qty: 90 3RF clonazepam 0.5 mg Tablet 0.5 mg PO QPM chlorpromazine 10 mg Tablet 20 mg PO HS trazodone 100 mg Tablet 200 mg PO HS bupropion HCl 150 mg tablet sustained-release 12 hr 150 mg PO QAM prednisone 20 mg tablet 20 mg PO QAM Rx Instructions: Take PO w/ food. 3 daily x3d, then 2 daily x3d, then 1 daily thereafter gabapentin 300 mg capsule 300 mg PO TID Rx Instructions: Start with one capsule at night for 4 days, if incomplete relief increase to one capsule at night and one in AM, if needed increase to one capsule three times daily. If adverse side effects decrease medication by one capsule every three days until off. Discontinued oxycodone 5 mg tablet 5 mg PO Q4H PRN (Reason: pain) Qty: 15 0RF Discharge Orders: Discharge Order (Routine); Ordered 06/25/24 Ordered By: Prasad Jordan Admission Data Admit Date/Time: 06/21/24 17:19 Attending Provider: Prasad Jordan Admit Provider: Prasad Jordan Primary Care Provider: Yamil Roa Other Providers: Darwin Allred; [facility]; [facility]
[2024-06-25 10:21] VITALS: PULSE 90
== END 2024-06-25 11:34 | DRG 427 ==
LOC: ASU 08:53 → 3N 17:19